=== PATIENT | male | born 1985 | race Caucasian/White ===

== ENCOUNTER 2024-02-15 00:35 | Day surgery (SDC) | payer OTHER, SELFPAY ==
[2024-02-08 14:18] VITALS: BMI 25.6
--- NOTE | 2024-02-08 14:28 | PC.NURSE ---
Report to the Outpatient Waiting Room, entrance under the green pavilion located off [facility], at 0600 on 02/15/24. Planned Procedure Time: 0730.? Time changes happen often and if your time is changed the preop area will call you the afternoon before. - You and your visitor will be asked to self-screen and do not enter if you have any COVID symptoms. Please call surgeon if you need to reschedule. - A mask is optional within the hospital at this time. Patients may have clear liquids (water, carbonated beverages, clear teas, apple juice) until 3 hours prior to surgery with a maximum of 20 ounces. - No food from midnight until time of surgery and no smoking Take only the following medications with a SIP of water on the morning of surgery: pain medication DO NOT STOP ANY OF YOUR OTHER PRESCRIPTION MEDICATIONS PRIOR TO SURGERY EXCEPT THE FOLLOWING Medications to discontinue per physician n/a Date to take last dose Please no make-up, nail korean, hairspray, perfume, deodorant, or body powder the day of surgery.? No jewelry (including any body piercings) or valuables the day of surgery, leave them at home.? Please take a shower or bath the night before, or the morning of, surgery with an antibacterial soap.? Wear comfortable, loose fitting clothing.? - Jewelry must be removed prior to entering the operating room.? Rings and piercings that are not removed may be cut off. - The hospital will not accept responsibility for valuables.? - Please leave all valuables, including medications, at home the day of surgery. If you are going home after surgery, a licensed reefer truck driver must drive you home.? - NO public transportation without another adult if you receive anesthesia. - We recommend that an adult stay with you for 24 hours following discharge. - We also recommend that you do not drive, make important decision, drink alcoholic beverages, or take any drugs that were not prescribed by your health care provider for at least 24 hours after your discharge time. Follow any additional instructions given to you from your surgeon. Telephone instructions given to patient and asked if any additional questions and then verbalized understanding. Patient advised to call surgeon office or pre surgery nurse liaison [phone] if any additional questions.
[2024-02-15] VITALS (7 sets, daily range): BP systolic 134–160; BP diastolic 80–95; PULSE 66–99; RESP 12–20; TEMP 36.1–36.2; O2SAT 100
[2024-02-15] MEDS: LACTATED RINGERS 1,000 ML 30 ML IV CONT ×2 (06:25→09:00)
--- NOTE | 2024-02-15 06:49 | WPDANESEPPF ---
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 Patient Data Age: 38 Gender: M Height: 1.91 m Weight: 94.8 kg Last Vital Signs Temp 36.2 C L 02/15/24 06:15 Pulse 66 02/15/24 06:15 Resp 18 02/15/24 06:15 BP 134/80 02/15/24 06:15 Pulse Ox 100 02/15/24 06:15 O2 Del Method Room Air 02/15/24 06:15 Allergies Allergy/AdvReac Type Severity Reaction Status Date / Time No Known Allergies Allergy Verified 02/15/24 06:31 Home Medications Medication Instructions Recorded Confirmed Type oxycodone-acetaminophen 5 mg-325 1 tablet PO QID PRN Pain 02/08/24 02/15/24 History mg tablet terbinafine HCl 250 mg tablet 250 mg PO DAILY 02/08/24 02/15/24 History Patient hx anesthesia problems: none Family hx anesthesia problems: none Results Review: All pre-operative results and documents have been reviewed as part of the pre-operative evaluation. [facility] Social History Social History Smoking status: Former smoker Tobacco type: smokeless tobacco Smokeless tobacco user: chewing tobacco Additional smoking assessment comments: dipped and chewed off and on 8-10yrs Alcohol intake: current Drinks per week: 9 Substance use: never Living arrangements: with family Spiritual care concerns: No Anes - Eval Final PreProcedure Day of Procedure 02/15/24 06:49 Patient weight: overweight Heart: regular rate and rhythm Lungs: clear to auscultation Airway: Mallampati scale class II Neurological: alert and oriented Last oral intake: >/= 8 hours ASA classification: II Emergent: no Anesthetic plan: proceed Anesthesia type and monitoring: general LMA and standard monitoring Results Review: All pre-operative results and documents have been reviewed as part of the pre-operative evaluation. Informed Consent: The patient's anesthetic plan and its attendant risks and benefits were discussed with the patient/family/POA. Questions were solicited and answers provided to the satisfaction of the patient/family/POA.
--- NOTE | 2024-02-15 07:19 | WPDHPUPDATE1 ---
History and Physical Update Update Date/Time: 02/15/24 07:19 History and Physical has been reviewed, including an updated exam of the patient. There are NO changes in the patient's condition. Risks, benefits, and alternatives have been discussed and questions answered. Patient agrees to proceed with procedure.
[2024-02-15] MEDS: ceFAZolin 2 GM/D5W 50 ML 2 GM/50 ML BAG IVPB (07:33)
[2024-02-15] MEDS: LIDOCAINE HCL 2% PF INJ 5 ML VIAL 10 ML INFILTRATE (07:58)
[2024-02-15] MEDS: fentaNYL CITRATE INJ (*CRX) 100 MCG/2 ML VIAL 25 MCG IV PUSH ×8 (09:14→09:40)
--- NOTE | 2024-02-15 09:16 | PM.OP ---
Procedure Note - Brief Procedure Note - Brief Date of procedure: 02/15/24 Peroneal Tendinopathy Rt Ankle Post-op diagnosis: Same Procedure performed: 1. Primary repair of peroneus brevis tendon right ankle 2. Peroneal tenosynovectomy right ankle Surgeon: Malick Méndez Jr., DPM
--- NOTE | 2024-02-15 09:24 | W.PM.PROC2 ---
Procedure Note - Detailed Date of Procedure 02/15/24 Pre-op Diagnosis Peroneal Tendinopathy Rt Ankle Post-op Diagnosis Other (1. Longitudinal split tear of peroneus brevis tendon right ankle. 2. Peroneal tenosynovitis right ankle) Procedure Performed 1. Primary repair of peroneus brevis tendont right ankle 2. Peroneal tenosynovectomy right ankle Surgeon Malick Méndez Jr., DPM Anesthesia General and Local Indications Chronic lateral right ankle pain Findings 1. Significant peroneal tenosyovitis right ankle 1. Longitudinal split tear of peroneus brevis tendon Description of Procedure The patient was brouht into the operating room, placed on the operating table in the lateral decubitus position. A pneumatic thigh tourniquet was placed about the patient's right thigh. Following general anesthesia, local anesthesia was obtained about the proximal leg utilizing 20 mL of local anesthesia of a one to two mix of 2% Lidocaine plain with 0.5% Marcaine plain just inferior and posterior to the neck of the fibula. The foot was then scrubbed, prepped, and draped in the usual aseptic manner. An Esmarch bandage was then used to exsanguinate the patient's foot and ankle and the pneumatic thigh tourniquet was then inflated. An incision was made starting 6 cm proximal to the lateral malleolus extending to the cuboid notch and 5th metatarsal base region. The incision was continued deep down through the subcutaneous tissues using sharp and blunt dissection. All bleeders were ligated and cauterized as necessary. I made a full length peroneal tendon sheath incision visualizing both the peroneus longus and brevis tendons in their entirety. As soon as the peroneus brevis sheath was incised yellow synovial fluid was expressed. Significant tenosynovitis was noted along the longitudinally torn peroneus brevis tendon. I encountered a 6m area of longitudinal split tearing to the peroneus brevis tendon staring distal to the lateral malleolus extending just proximal to the 5th metatarsal base. I resected the tenosynotiis and sent it for gross and histopathology. I resected the amorphous split tearing and retubularized with 5-0 Prolene in simple interrupted suture fashion technique. I flushed the affected area with copious amounts of sterile saline. Next, I reapproximated the peroneal sheath with 3-0 Vicryl and the subcutaneous structures were reapproximated and coapted utilizing 4-0 Vicryl. Next, the skin was reapproximated and coapted utilizing 4-0 Monocryl in running subcuticular suture fashion technique. Upon completion of the procedure, the incisions were all dressed with 1/4 inch Steri Strips, Adaptic, 4x4s, Kerlix, and Coban. The pneumatic thigh tourniquet was then deflated and a prompt hyperemic response was noted to all digits of the affected foot. A posterior splint was then applied. The patient did very well with the procedure and the anesthesia. The patient was transferred to the recovery room with vital signs stable and vascular status intact to all toes of the affected foot. Following a period of postoperative monitoring, the patient will be discharged home on the following written and oral postoperative instructions: 1. The patient should keep the dressing clean, dry, and intact. Use a cast protector bag with showers. 2. The patient will be strictly nonweightbearing with a knee scooter. 3. Patient should ice and elevate the affected foot when at rest. 4. The patient is to contact Dr. Méndez for all postop care and if any problems arise. 5. Prescriptions were written for Percocet 5/325 dispensed 40 to be taken 1 p.o. q.4-6 hours as needed for severe pain. Furthermore, Xarelto 10 mg was also prescribed to be taken starting 24 hours after surgery once daily for 14 days followed by one 325 mg aspirin to prevent DVT. Estimated Blood Loss 1 Drains No Packing No Pathology Yes Complications No immediate complications Condition Stable Disposition S
[2024-02-15] MEDS: oxyCODONE HCL (*CRX) 5 MG TAB IR PO (10:04)
== END 2024-02-15 10:30 | disposition home or self-care (01) ==
PROVIDERS: Visit Provider Podiatrist Foot & Ankle Surgery
PROC: (CPT 27698; principal; 2024-02-15 07:30)
DX: M76.71 Peroneal tendinitis, right leg (principal); M65.871 Other synovitis and tenosynovitis, right ankle and foot; F17.220 Nicotine dependence, chewing tobacco, uncomplicated
CPT/HCPCS: 28200; 28088; 88304; A9270; J0330; J0690; J1100; J2250; J2405; J2704; J3010; J7120